=== PATIENT | female | born 1980 | race Caucasian/White ===

== ENCOUNTER → 2021-05-24 | Outpatient (CLI) | payer OTHER ==
[~2021-05-24] MED LIST: ANTIVERT 25MG T25 MG PO; CLARITIN 10MG T10 MG PO; IBUPROFEN800 MG PO; KLONOPIN TAB 00.5 MG PO; PROTONIX40 MG PO; SERTRALINE HCL50 MG PO; TENORMIN 25 MG25 MG PO; ZANTAC 150 MG150 MG PO
== END ==
LOC: SLEEP 21:30
DX: G47.33 Obstructive sleep apnea (adult) (pediatric) (principal)
CPT/HCPCS: 95810